=== PATIENT | female | born 1970 | race Caucasian/White ===

== ENCOUNTER 2018-04-17 16:28 | Emergency (ER) | payer OTHER, SELFPAY ==
[2018-04-17 16:31] VITALS: BP 122/86; PULSE 76; RESP 16; TEMP 36.7; O2SAT 100; BMI 26.6
--- NOTE | 2018-04-17 16:36 | EKG12_ITS ---
Test Reason : CHEST PAIN Blood Pressure : / mmHG Vent. Rate : 078 BPM Atrial Rate : 078 BPM P-R Int : 146 ms QRS Dur : 098 ms QT Int : 398 ms P-R-T Axes : 046 042 052 degrees QTc Int : 453 ms Normal sinus rhythm Normal ECG Confirmed by DYLLAN MARTINEZ, LOENELA ([id number]), movie editor RALPH EMERSON ([id number]) on 04/21/2018 1:32:50 PM Referred By: REYNA Confirmed By:LEONELA MIJARES MD
--- NOTE | 2018-04-17 16:56 | RAD_ITS ---
STUDY: X-RAY CHEST REASON FOR EXAM: Female, 48 years old. Chest pain TECHNIQUE: Single AP portable view of the chest. COMPARISON: None. 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 The lungs are clear and expanded. There is no demonstrated pleural abnormality. Normal size heart. Normal mediastinum and leonel. Normal visualized pulmonary arteries. Normal visualized aortic arch and descending thoracic aorta. Normal visualized thoracic spine. Normal visualized ribs, clavicles, and shoulders. There is no demonstrated abnormality of the visualized soft tissue structures of the upper abdomen. RAD/Chest 1 View (Portable) IMPRESSION: Normal x-ray examination of the chest. Electronically Signed: Jay Cornejo MD at 18:35 EST , Service support ,
[2018-04-17 17:04] LABS: Absolute Lymphocyte Count 1.71 X10^3/ul (0.83-4.51); Absolute Neutrophil Count 2.9 X10^3/uL (2.0-7.7); Basophil# 0.02 X10^3/uL; Basophil% 0.4 % (0-1); Eosinophil# 0.08 X10^3/uL; Eosinophils% 1.5 % (0-5); Hematocrit 39.1 % (37-47); Hemoglobin 12.9 g/dl (12.0-15.0); Lymphocyte # 1.71 X10^3/ul (4.0); Lymphocyte % 32.8 % (19-41); Mean Corpuscular Hgb 29.3 pg (27.0-32.0); Mean Corpuscular Volume 88.9 fL (81-99); Monocyte# 0.51 X10^3/uL; Monocyte% 9.8 % (0-10); Neutrophil # 2.88 X10^3/uL (2.7-7.7); Neutrophil % 55.3 % (47-70); Platelet Count 311 K/mm3 (150-450); RBC Distribution Width CV 12.8 % (11.6-14.6); RBC Distribution Width SD 41.1 fl (35.1-43.9); White Blood Count 5.2 K/mm3 (4.4-11.0)
[2018-04-17 17:19] LABS: POSITIVE COUNT NO; POSITIVE DIFFERENTIAL NO; POSITIVE MORPHOLOGY NO
[2018-04-17 17:28] LABS: Anion Gap 6 (5-15); BUN 14 mg/dL (7-18); BUN/Creat Ratio 20.3 RATIO (10-20); Calcium,Total 8.8 mg/dL (8.5-10.1); Chloride 107 mmol/L (98-107); Creatinine, Serum 0.69 mg/dL (0.55-1.02); EST Glomerular Filtration Rate 96 mL/min (>60); Est Glom Filt Rate - Afr Amer 116 mL/min (>60); Estimated Creatinine Clearance 91.31 ml/min; Glucose 89 mg/dL (74-106); Potassium 3.6 mmol/L (3.5-5.1); Sodium Level 141 mmol/L (136-145)
[2018-04-17 17:30] VITALS: BP 119/69; PULSE 68; RESP 16; O2SAT 100
[2018-04-17] MEDS: Aspirin 81 MG TAB.CHEW 324 MG PO (17:30)
[2018-04-17 18:00] VITALS: BP 120/79; PULSE 71; RESP 15; O2SAT 96
[2018-04-17 18:52] VITALS: BP 117/69; PULSE 69; RESP 16; O2SAT 96
--- NOTE | 2018-04-17 19:42 | ED.VISSUMM ---
- ER Visit Summary Date of Service: 04/17/18 Chief Complaint: Chest pain History of Present Illness: The patient is a 48 F with left-sided chest pain for several days. The pain waxes and wanes but was constant today. Nothing seems to bring it on or make it worse. No changes with exertion. The pain is in her left chest and sometimes radiates to her substernal region. Nothing makes it better or worse. She had some mild nausea but no vomiting. No lightheadedness. No sweats. No shortness of breath or respiratory symptoms. No history of coronary disease, hypertension, diabetes, hyperlipidemia, or smoking. No significant family history of coronary disease. No history of PE or PE risk factors. No history of aortic disease. Physical Examination: Afebrile and vital signs unremarkable. Patient is alert and oriented. No acute distress. Skin is normal in color without pallor or diaphoresis. Heart regular rate and rhythm. Lungs clear. Abdomen soft and nontender. Extremities nontender with no edema. Strong equal pulses. Test Results: EKG showed sinus rhythm rate of 78. No sign of acute ischemia or infarction pattern. CBC normal. BMP normal. Troponin normal. Chest x-ray normal. Emergency Department Course and Treatment: Patient treated with aspirin and placed on a monitor while awaiting results. Her workup as above was fairly unremarkable. There is nothing to suggest PE or dissection. She is low risk for ACS. I discussed this with her. She is not 0 risk, but she is low risk. I believe she is appropriate for outpatient follow-up. She was referred to Dr. swain who was on-call for new patients. Patient was advised that if she has new or worsening issues, she should return to the ED for repeat evaluation and possible admission or further diagnostic testing or care. Patient will be discharged. Treatment Plan: As above Disposition: Discharge Impression: 1. Chest pain unclear etiology This note was generated with [employer] dictation software. It may contain incorrect words, spelling, and punctuation that were not noted in review of the chart prior to signing ED Disposition - Plan for ED Patient: Referrals: Care Physician,No Primary [Primary Care Provider] -
--- NOTE | 2018-04-17 19:44 | ED.DEP ---
ED Disposition - Plan for ED Patient: Instructions: ED Chest Pain Atypical Unkn Cause Referrals: Ashok,Sweta, [NON-STAFF] -
[2018-04-17 19:48] VITALS: BP 126/74; PULSE 72; RESP 10; O2SAT 96
== END 2018-04-17 19:52 | disposition home or self-care (01) ==
LOC: ED 18:18
PROVIDERS: Emergency Provider Emergency Medicine
DX: R07.9 Chest pain, unspecified (principal)
CPT/HCPCS: 71045; 80048; 84484; 85025; 93005; 99285; A4216

== ENCOUNTER → 2018-11-11 | Outpatient (CLI) | payer OTHER, SELFPAY ==
[2018-11-17 12:25] LABS: HPV Reflexed? NOT INDICATED
== END | disposition home or self-care (01) ==
PROVIDERS: Referring Provider Obstetrics & Gynecology; Visit Provider Obstetrics & Gynecology
DX: Z12.4 Encounter for screening for malignant neoplasm of cervix (principal)
CPT/HCPCS: 87624; 88175; G0145

== ENCOUNTER 2019-01-10 06:55 | Day surgery (SDC) | payer OTHER, SELFPAY ==
[2019-01-10 07:26] VITALS: BP 116/69; PULSE 68; RESP 14; TEMP 37; O2SAT 98; BMI 25.2
[2019-01-10] MEDS: Lactated Ringers 1,000 ML 100 ML IV (07:46)
--- NOTE | 2019-01-10 07:52 | H&P.OPEN ---
History of Present Illness Date of Admission: 01/10/19 The patient is a 48 year old F who presents for screening colonoscopy. She is never had a colonoscopy. She is having no problems with her bowel habits. Past Medical/Surgical History - Cardiovascular Hx of Irregular Heartbeat and/or Afib: No Hx Heart Attack: No Hx Congestive Heart Failure: No Hx Hypertension: No Hx Pacemaker: No - Respiratory Hx Chronic Obstructive Pulmonary Disease (COPD): No Hx Asthma: No Hx Emphysema: No Hx Sleep Apnea: No Do You Snore Loudly (louder than talking or can be heard): No Do You Often Feel Tired/ Fatigued/ Sleepy Dring Daytime?: No Has Anyone Observed You Stop Breathing During Sleep?: No Result (for STOP score): Negative Smoking Status: Never smoker - Gastrointestinal Hx Gastroesophageal Reflux: No Hx Ulcer: No - Neurological Hx Seizures: No Hx Head/Neck Injury: No Hx Headaches: No Hx Back Injury/Pain: No - Blood Disorder Hx Hepatitis: No Hx Cirrhosis: No - Endocrine Hx Diabetes: No - Psycho/Social Hx Substance Use: No Hx Alcohol Use: No Hx Anxiety: No Hx Depression: No - Miscellaneous Recent Exposure to Contagious Disease: No Allergies sulfamethoxazole [From Novra] Allergy (Verified 04/17/18 16:31) Other trimethoprim [From Novra] Allergy (Verified 04/17/18 16:31) Other - Physical Exam Vitals/I&O's: Vital Signs Temp Pulse Resp BP Pulse Ox 98.6 F 68 14 116/69 98 01/10/19 07:26 01/10/19 07:26 01/10/19 07:26 01/10/19 07:26 01/10/19 07:26 Oxygen Delivery Method Room Air Weight: 156 lb 11.979 oz Body Mass Index (BMI) 25.2 General: Alert, Oriented x3 Lungs: Clear to auscultation Cardiovascular: Regular rate, Regular Rhythm, No murmurs Abdomen: Bowel Sounds Present, Soft, Non Tender, Non-Distended Current Medications Lactated Ringer's () 1,000 mls @ 100 mls/hr IV .Q10H RAMY Last Admin: 01/10/19 07:46 Dose: 100 mls/hr Documented by: Assessment/Plan Plan is to perform a colonoscopy. Surgery Risks - Colonoscopy Risks Include but are not Limited To: Risks include but are not limited to: Bleeding, perforation requiring further surgery, inability to complete colonoscopy requiring barium enema.
[2019-01-10 08:19] VITALS: BP 114/72; BP 116/69; PULSE 68; RESP 16; TEMP 36.6; O2SAT 100
--- NOTE | 2019-01-10 08:22 | OP.ENDO_ITS ---
01/10/2019 No Primary Care Physician Re : Colonoscopy procedure for Fabiola Cross Dear Care Physician This procedure was performed on Thursday, January 10, 2019. My impressions and recommendations are as follows: Impressions : - Diverticulosis in the sigmoid colon. - The examination was otherwise normal on direct and retroflexion views. - No specimens collected. Recommendations : - Discharge patient to home. - Resume previous diet. - Continue present medications. - Repeat colonoscopy in 10 years for screening purposes. - Return to primary care physician PRN. My findings are described in the full procedure note, which is enclosed. If I can be of further assistance, please feel free to contact me at Doctor phone number(s): , Fax: [phone], Work: . Sincerely, MD Freeman Woods MD 01/10/2019 8:21:40 AM This report has been signed electronically.
[2019-01-10 08:25] VITALS: BP 116/69; BP 123/80; PULSE 62; RESP 16; O2SAT 97
[2019-01-10 08:30] VITALS: BP 116/69; BP 132/81; PULSE 62; RESP 16; O2SAT 100
[2019-01-10 08:35] VITALS: BP 116/69; BP 143/78; PULSE 60; RESP 16; TEMP 36.6; O2SAT 100
[2019-01-10 09:18] VITALS: BP 116/69
== END 2019-01-10 09:18 | disposition home or self-care (01) ==
LOC: EN 06:57 → AC 06:58
PROVIDERS: Referring Provider Surgery; Visit Provider Surgery
PROC: 0DJD8ZZ Inspection of Lower Intestinal Tract, Via Natural or Artificial Opening Endoscopic (ICD-10-PCS; CPT 45378; principal; 2019-01-10 07:55)
DX: Z12.11 Encounter for screening for malignant neoplasm of colon (principal); K57.30 Diverticulosis of large intestine without perforation or abscess without bleeding
CPT/HCPCS: 45378; J7120

== ENCOUNTER → 2020-03-28 16:38 | Outpatient (CLI) | payer OTHER, SELFPAY ==
--- NOTE | 2020-03-28 16:00 | EMB_PTH ---
PATIENT: MONICA NEWMAN LOC: [facility] U#:[id number] AGE/SX: 54/F ROOM: RE03/28/[address]: Dr. Rigoberto Thompson MD : 1970 BED: DIS: SPEC #: [id number] RECD: 03/28/20 17:20 STATUS: CONSTANTINO OLIVIA #: [id number] NYDIA: 03/28/20 16:[address]: Rigoberto Thompson DEPT: SURGICAL PATHOLOGY RECD BY: Manasa Swanson ENTERED: 03/29/20 06:46 SP TYPE: ENDOM BX/C CRYSTAL DR: No Primary Care Phys Tissues: Endometrium, NOS Procedures: Surgery Specimen Level IV HEADER OPERATION: Endometrial biopsy PRE-OP DIAGNOSIS: Postmenopausal bleeding TISSUE SUBMITTED: Endometrial biopsy MICROSCOPIC DIAGNOSIS Endometrial biopsy: Strips of benign endometrial epithelium and scant fragments of superficial benign endometrial tissue. SJ:jerry 03/30/2020 COMMENT Clinical correlation and appropriate follow up are necessary. MICROSCOPIC DESCRIPTION Slides are reviewed. GROSS DESCRIPTION Received in fixative is one container labeled with the patient's name and designated EM biopsy. The specimen consists of two fragments of toribio hemorrhagic soft tissue that in aggregate measure 0.8 x 0.3 x 0.1 cm. The specimen is totally submitted in one cassette. / SJ:jerry 03/29/20 TC:4 CPT: 77959
[2020-04-02 17:31] LABS: HPV Reflexed? NOT INDICATED
== END ==
PROVIDERS: Visit Provider Obstetrics & Gynecology
DX: N95.0 Postmenopausal bleeding (principal)
CPT/HCPCS: 88175; 88305; G0145

== ENCOUNTER → 2021-12-24 | Outpatient (CLI) | payer OTHER, SELFPAY ==
[2021-12-24 18:42] LABS: Free T3 2.7 pg/mL (2.18-3.98); T4 Free Direct 0.99 ng/dL (0.76-1.46); Thyroid Stim Hormone (TSH) 2.13 uIU/mL (0.358-3.74)
[2021-12-26 22:07] LABS: Thyroid Peroxidase AB < 8 IU/mL (0-34)
[2021-12-28 14:59] LABS: Thyroglobulin Antibody < 1.0 IU/mL (0.0-0.9)
== END | disposition home or self-care (01) ==
PROVIDERS: PCP Family Medicine; Visit Provider Family Medicine
DX: R53.83 Other fatigue (principal)
CPT/HCPCS: 36415; 84439; 84443; 84481; 86376; 86800

== ENCOUNTER 2022-10-26 09:40 | Emergency (ER) | payer OTHER, SELFPAY ==
[2022-10-26 09:42] VITALS: BP 136/68; PULSE 79; RESP 14; TEMP 36.3; O2SAT 99; BMI 26.0
--- NOTE | 2022-10-26 09:49 | EDS_ITS ---
HPI History of Present Illness Chief Complaint: Allergic Reaction Informant: patient Narrative Narrative: Day before yesterday patient was stung by a wasp in the right forearm, and over the last day or 2 she has gradually developed swelling and a red rash in the r ight forearm into the arm. She has had a localized reaction similar but not as severe when she was stung by a yellow jacket a couple weeks ago, she denies any shortness of breath, dysphagia, syncope, or any other systemic symptoms or other sting areas. PFSH PFSH no medical history Home Medications Calcium 1 tab PO DAILY 04/17/18 [History Last Taken 01/08/19] multivitamin (Daily Multiple tablet) 1 ea PO DAILY 04/17/18 [History Last Taken 01/08/19] omega-3 fatty acids-fish oil 300 mg-1,000 mg capsule 1 ea PO DAILY 04/17/18 [History Last Taken 01/08/19] vit B complex with C 300 mg-calcium carbonate 150 mg calcium tablet (B-Complex Plus Vitamin C (and calcium)) 1 ea PO DAILY 04/17/18 [History Last Taken 01/08/19] prednisone 20 mg tablet 40 mg (2 x 20 mg) PO DAILY #8 TABLETS 10/26/22 [Rx Last Taken Unknown] Allergy/AdvReac Type Severity Reaction Status Date / Time guaifenesin [From Entex LA] Allergy Mild Rash Verified 10/26/22 09:41 phenylephrine [From Entex LA] Allergy Mild Rash Verified 10/26/22 09:41 phenylpropanolamine Allergy Mild Rash Verified 10/26/22 09:41 [From Entex LA] sulfamethoxazole Allergy Other Verified 10/26/22 09:41 [From Septra] trimethoprim [From Septra] Allergy Other Verified 10/26/22 09:41 Social History Smoking Status: Never smoker ROS ROS ED Constitutional Constitutional ED: Denies chills or fever(s) Musculoskeletal Musculoskeletal: Denies extremity pain or neck pain Integumentary Reports rash; Denies Abrasions or wounds Neurologic Neurologic: Denies paresthesias or weakness EXAM Physical Exam Const Vital Signs: 10/26/22 09:42 Temperature 97.3 F L Temperature Source Temporal Pulse Rate 79 Respiratory Rate 14 Blood Pressure 136/68 H Blood Pressure Mean 90 Pulse Ox 99 Oxygen Delivery Method Room Air Positive well nourished and well developed General Appearance ED: well developed and NAD Neck full ROM and supple Back/Spine normal ROM and normal to inspection Extremity Extremity Narrative: Edematous right upper extremity to the mid upper arm, full range of motion all joints all compartment soft and nondistended, no areas of tenderness or lymphadenopathy. Neuro oriented x3, no focal motor deficits and no sensory deficits noted Sensorium / Orientation: alert Psych mental status grossly normal and thought process normal Skin Skin Narrative: There is a small hyperemic sting site at the volar right distal forearm/wrist, there is no tenderness or discharge/bleeding or an abscess associated with this. There is blanching erythema up the arm to the mid upper arm along with edema, none of this is tender. MDM MDM MDM Narrative Medical decision making narrative: Consistent with allergic reaction from a bee sting, do not think she needs an EpiPen at this time, will prescribe her prednisone give her a dose here, she is also given a dose of Benadryl for the mild itching she is having right now. Discussed reasons to return. Discharge Plan Triage Chief Complaint: Allergic Reaction ED Provider: Alo Virgen Dx/Rx/DC Orders Clinical Impression: Local reaction to hymenoptera sting Instructions: ED Insect Sting, Local Reaction Prescriptions: New prednisone 20 mg tablet 40 mg PO DAILY Qty: 8 0RF No Action multivitamin [Daily Multiple] 1 EACH tablet 1 ea PO DAILY omega-3 fatty acids-fish oil 1 EACH capsule 1 ea PO DAILY vit B comp with C-calcium carb [B-Complex Plus Vit C (calcium)] 1 EACH tablet 1 ea PO DAILY Calcium 1 tab PO DAILY Primary Care Provider: Ana Junior Referrals: Ana Junior MD [Primary Care Provider] - 3-5 Days if not improving Activity Restrictions/Additional Instructions: Start prescription tomorrow, 10/27 since she received a dose at the hospital for 10/26 Disposition Disposition: Home, Self Care
[2022-10-26] MEDS: predniSONE 20 MG Tablet 40 MG PO (10:00)
[2022-10-26] MEDS: DiphenhydrAMINE 25 MG Capsule 50 MG PO (10:00)
== END 2022-10-26 10:43 | disposition home or self-care (01) ==
LOC: ED 10:02
PROVIDERS: Emergency Provider Emergency Medicine; PCP Family Medicine; Visit Provider Emergency Medicine
DX: T78.40XA Allergy, unspecified, initial encounter (principal); X58.XXXA Exposure to other specified factors, initial encounter
CPT/HCPCS: 99283

== ENCOUNTER → 2023-12-29 | Outpatient (CLI) | payer OTHER, SELFPAY ==
--- NOTE | 2023-12-29 14:01 | VDLE_ITS ---
Reason For Study: Possible bakers cyst Procedure LEFT This is a venous duplex using B-mode, color GSV is normal. flow and spectral Doppler. CFV is compressible, spontaneous, phasic, Exam performed in department. competent, and demonstrates normal A preliminary report was called and/or faxed augmentation. to Dr. Junior. FV is compressible, spontaneous, phasic, competent and demonstrates normal augmentation. POP V is compressible, spontaneous, phasic, competent and demonstrates normal augmentation. T/P Trunk is compressible. PTV is compressible. LT PerV is compressible. VL/Venous Duplex US, Unilateral Interpretation Summary Deep veins of the left lower extremity are patent and compressible segmentally. There is no evidence of left lower extremity deep vein thrombosis. The left great saphenous vein villa ears patent and compressible segmentally. Ordering Physician: Ana Junior Referring Physician: Ana Junior Performed By: Lorenza Pearson RVT
== END | disposition home or self-care (01) ==
PROVIDERS: PCP Family Medicine; Referring Provider Family Medicine; Visit Provider Family Medicine
DX: M79.605 Pain in left leg (principal)
CPT/HCPCS: 93971

== ENCOUNTER → 2024-06-03 | Outpatient (CLI) | payer OTHER, SELFPAY ==
--- NOTE | 2024-06-03 13:20 | RAD_ITS ---
EXAM: XR Chest, 2 Views CLINICAL INDICATION: COUGH TECHNIQUE: Frontal and lateral views of the chest. COMPARISON: No relevant prior studies available. FINDINGS: LUNGS AND PLEURAL SPACES: Unremarkable. No consolidation. No pneumothorax. HEART: Unremarkable. No cardiomegaly. MEDIASTINUM: Unremarkable. Normal mediastinal contour. BONES/JOINTS: Unremarkable. No acute fracture. RAD/Chest PA and Lateral IMPRESSION: No acute cardiopulmonary process. Reading Location: [facility]
== END | disposition home or self-care (01) ==
LOC: RAD 13:11
PROVIDERS: PCP Family Medicine; Referring Provider Family Medicine; Visit Provider Family Medicine
DX: R05.8 Other specified cough (principal)
CPT/HCPCS: 71046

== ENCOUNTER → 2024-07-07 | Outpatient (CLI) | payer OTHER, SELFPAY ==
[2024-07-07 11:46] LABS: Hematocrit 35.7 % (37-47); Hemoglobin 11.4 g/dL (12.0-15.0); Mean Corp Hgb Conc 31.9 g/dL (32-36); Mean Corpuscular Hgb 26.6 pg (27.0-32.0); Mean Corpuscular Volume 83.4 fL (81-99); Mean Platelet Vol. 9.6 fl (6.2-12.0); Platelet Count 310 K/mm3 (150-450); RBC Distribution Width CV 13.8 % (11.6-14.6); RBC Distribution Width SD 41.9 fl (35.1-43.9); Red Blood Count 4.28 M/mm3 (4.2-5.4); White Blood Count 5.3 K/mm3 (4.4-11.0)
[2024-07-07 13:00] LABS: Anion Gap 12 (5-15); BUN 13 mg/dL (4-19); Calcium,Total 8.9 mg/dL (7.6-11.0); Carbon Dioxide 21.6 mmol/L (21.0-32.0); Chloride 106 mmol/L (98-108); Creatinine, Serum 0.55 mg/dL (0.70-1.20); EST Glomerular Filtration Rate 108 (>60); Glucose 93 mg/dL (70-99); Potassium 3.9 mmol/L (3.3-5.1); Sodium Level 139 mmol/L (133-145)
== END | disposition home or self-care (01) ==
PROVIDERS: PCP Family Medicine; Referring Provider Otolaryngology; Visit Provider Otolaryngology
DX: Z01.810 Encounter for preprocedural cardiovascular examination (principal); Z01.812 Encounter for preprocedural laboratory examination
CPT/HCPCS: 36415; 80048; 85027; 93005

== ENCOUNTER → 2024-09-21 | Outpatient (CLI) | payer OTHER, SELFPAY | END | disposition home or self-care (01) | LOC: LAB 07:41 | PROVIDERS: PCP Family Medicine | DX: T78.40XA Allergy, unspecified, initial encounter (principal); R19.8 Other specified symptoms and signs involving the digestive system and abdomen; Z13.29 Encounter for screening for other suspected endocrine disorder | CPT/HCPCS: 36415 ==